=== PATIENT | male | born 1965 | race Caucasian/White ===

== ENCOUNTER 2020-06-01 17:20 | Emergency (ER) | payer OTHER, SELFPAY ==
[2020-06-01 18:12] VITALS: BP 99/70; PULSE 97; RESP 16; TEMP 36.7; O2SAT 97
--- NOTE | 2020-06-01 18:17 | ECG_ITS ---
Measurements Intervals [place] Rate: 89 P: 58 NE: 177 QRS: 22 QRSD: 77 T: 57 QT: 343 QTc: 419 Interpretive Statements SINUS RHYTHM BORDERLINE R WAVE PROGRESSION, ANTERIOR LEADS BASELINE ARTIFACT- I, II, AVR, AVL, V1 BORDERLINE ECG Electronically Signed On 06-01-2020 20:01:42 CDT by Anshu Morales D.O.
[2020-06-01 18:40] LABS: Basophils Absolute Auto 0.1 K/mm3 (0.0-0.1); Basophils Percent Auto 1.1 % (0.2-1.2); Eosinophils Absolute Auto 0.1 K/mm3 (0-0.3); Eosinophils Percent Auto 0.7 % (0-4.4); Hematocrit 42.7 % (42.0-52.0); Hemoglobin 14.8 g/dL (14.0-18.0); Immature Granulocyte Absolute 0.04 K/mm3 (0.00-0.031); Immature Granulocyte Percent A 0.3 % (0-0.5); Lymphocytes Absolute Auto 3.96 K/mm3 (0.9-3.2); Lymphocytes Percent Auto 32.2 % (18.3-44.2); Mean Corpuscular HGB Conc 34.7 g/dl (32-36); Mean Corpuscular Hemoglobin 32.9 pg (26-34); Mean Corpuscular Volume 94.9 fl (80-100); Mean Platelet Volume 10.2 fl (7.4-10.4); Monocytes Absolute Auto 0.6 K/mm3 (0.1-0.6); Monocytes Percent Auto 4.7 % (2.6-8.5); Neutrophils Absolute Auto 7.5 K/mm3 (1.3-6.7); Platelet Count Result 278 k/mm3 (150-375); Red Cell Distribution Width 12.7 % (11.5-14.5); White Blood Count 12.3 K/mm3 (4.5-10.0)
[2020-06-01 18:50] LABS: Potassium 3.9 mmol/L (3.4-5.0)
[2020-06-01 18:54] LABS: Alanine Aminotransferase 10 U/L (4-50); Albumin Level 4.7 g/dL (3.5-5.1); Alkaline Phosphatase 87 U/L (38-126); Anion Gap 13 mmol/L (8-16); Aspartate Amino Transferase 19 U/L (17-59); Bilirubin,Total 0.8 mg/dL (0.2-1.3); Blood Urea Nitrogen 10 mg/dL (9-20); Calcium 9.2 mg/dL (8.4-10.2); Carbon Dioxide 22 mmol/L (22-30); Chloride 101 mmol/L (98-107); Estimated CRCL calculation 80 ml/min; Estimated Glomerular Filt Rate > 60; Glucose 88 mg/dL (75-110); Sodium 136 mmol/L (137-145)
--- NOTE | 2020-06-01 20:22 | PC.NURSE ---
Went to get pt to take to a room and pt not in lobby. Pt did not inform staff he was leaving. Pt not in lobby or outside.
== END 2020-06-01 20:39 | disposition left against medical advice (07) ==
PROVIDERS: Emergency Provider Emergency Medicine
DX: R41.82 Altered mental status, unspecified (principal)
CPT/HCPCS: 36415; 80053; 85025; 93005; 99199

== ENCOUNTER 2020-06-12 12:26 | Emergency (ER) | payer OTHER, SELFPAY ==
[2020-06-12] VITALS (28 sets, daily range): BP systolic 129–166; BP diastolic 62–74; PULSE 62–82; RESP 12–20; TEMP 36.3; O2SAT 98–100
--- NOTE | ~2020-06-12 | CT_ITS ---
EXAMINATION: CT brain wo con EXAM DATE: 06/12/2020 13:03 INDICATION: Weakness and confusion. TECHNIQUE: Spiral CT of the head was performed without contrast. Axial, coronal and sagittal images were reviewed. The dose-length product (DLP) for this examination was 681.00 mGy-cm. The exposure w as tailored according to patient size, and iterative reconstruction (ASIR) was used as additional dos e reduction technique. There is no prior study for comparison. FINDINGS: Multiple scattered old left middle cerebral artery distribution infarctions. Old right basa l ganglia lacunar infarction. Mild microangiopathy and cerebral atrophy. There is no acute intraparen chymal hemorrhage. No evidence of intraparenchymal brain mass lesion. No evidence of acute infarcti on. There is no mass effect or midline shift. The ventricles are normal in size. There are no extr a-axial collections. There are no acute calvarial fractures. The orbits are unremarkable. Soft tiss ue is unremarkable. The visualized sinuses and mastoid air cells are well aerated. IMPRESSION: 1. No acute intracranial findings. 2. Multiple left MCA distribution infarctions. 3. Old right basal ganglia lacunar infarction. Reviewed, dictated and finalized at location B.
--- NOTE | ~2020-06-12 | XR_ITS ---
EXAMINATION: XR chest 1V EXAM DATE: 06/12/2020 13:11 INDICATION: Weakness and confusion. Coronary artery disease. Reflux. Hypertension. TECHNIQUE: Portable AP frontal chest x-ray was obtained. Comparison is made to prior examination from 12/24/2018. FINDINGS: The lungs are clear. There are no pleural effusions. The cardiomediastinal silhouette is within normal limits. There is no pneumothorax suspected. The bones and soft tissues are unremarkab le. IMPRESSION: No acute cardiopulmonary findings. Reviewed, dictated and finalized at location B.
--- NOTE | 2020-06-12 12:44 | ECG_ITS ---
Measurements Intervals [place] Rate: 76 P: 72 MS: 196 QRS: 27 QRSD: 81 T: 60 QT: 372 QTc: 419 Interpretive Statements SINUS RHYTHM INCOMPLETE RIGHT BUNDLE BRANCH BLOCK BASELINE ARTIFACT- I, II, III, AVR, AVL BORDERLINE ECG Electronically Signed On 06-12-2020 14:33:37 CDT by Anshu Morales D.O.
--- NOTE | 2020-06-12 12:50 | PC.NURSE ---
Called lab to make sure orders are received for blood previously sent down. Spoke with Milana
--- NOTE | 2020-06-12 12:52 | PC.NURSE ---
patient arrives to er accompanied by his significant other. girlfriend states that patient was seen [facility] last night and was told he has dementia and cva but was not admitted nor given medication or referral. girlfriend states they are here for a second opinion. patient rambles on about having clogged arteries that need to be unclogged and about generalized weakness and pain. girlfriend states that patient is not acting any differently that he usually does and really provides no clear chief complaint then becomes angry with continued questions. patient seems confused and also doesnt provided a clear chief complaint or any new symptoms
[2020-06-12 12:57] LABS: Basophils Absolute Auto 0.1 K/mm3 (0.0-0.1); Basophils Percent Auto 1.2 % (0.2-1.2); Eosinophils Absolute Auto 0.1 K/mm3 (0-0.3); Hematocrit 41.4 % (42.0-52.0); Hemoglobin 13.8 g/dL (14.0-18.0); Immature Granulocyte Absolute 0.02 K/mm3 (0.00-0.031); Immature Granulocyte Percent A 0.3 % (0-0.5); Lymphocytes Absolute Auto 2.28 K/mm3 (0.9-3.2); Lymphocytes Percent Auto 29.4 % (18.3-44.2); Mean Corpuscular HGB Conc 33.3 g/dl (32-36); Mean Corpuscular Hemoglobin 32.2 pg (26-34); Mean Corpuscular Volume 96.5 fl (80-100); Mean Platelet Volume 10.4 fl (7.4-10.4); Monocytes Absolute Auto 0.6 K/mm3 (0.1-0.6); Monocytes Percent Auto 7.4 % (2.6-8.5); Neutrophils Absolute Auto 4.7 K/mm3 (1.3-6.7); Neutrophils Percent Auto 60.7 % (45.5-73.1); Platelet Count Result 274 k/mm3 (150-375); Red Blood Count 4.29 M/mm3 (4.6-6.20); Red Cell Distribution Width 12.6 % (11.5-14.5); White Blood Count 7.8 K/mm3 (4.5-10.0)
[2020-06-12 13:04] LABS: Ethanol < 10 mg/dL (<10); Potassium 3.8 mmol/L (3.4-5.0)
[2020-06-12 13:05] LABS: Lactic Acid Reflex 1.6 mmol/L (0.7-2.1)
[2020-06-12 13:09] LABS: INR 0.9; Prothrombin Time 13.1 Seconds (11.1-14.7)
[2020-06-12 13:10] LABS: Partial Thromboplastin Time 28.6 SECONDS (22.3-36.8)
[2020-06-12 13:11] LABS: Alanine Aminotransferase 13 U/L (4-50); Albumin Level 4.4 g/dL (3.5-5.1); Alkaline Phosphatase 85 U/L (38-126); Anion Gap 9 mmol/L (8-16); Aspartate Amino Transferase 21 U/L (17-59); Bilirubin,Total 0.6 mg/dL (0.2-1.3); Blood Urea Nitrogen 8 mg/dL (9-20); CRP < 0.5 mg/dL (<1.0); Calcium 9.5 mg/dL (8.4-10.2); Carbon Dioxide 26 mmol/L (22-30); Chloride 104 mmol/L (98-107); Creatine Kinase 68 U/L (55-170); Estimated CRCL calculation 78 ml/min; Estimated Glomerular Filt Rate > 60; Glucose 98 mg/dL (75-110); Lipase 51 U/L (23-300); Magnesium 1.9 mg/dL (1.6-2.3); Sodium 139 mmol/L (137-145)
[2020-06-12 13:15] LABS: Troponin I < 0.012 ng/mL (0.000-0.034)
--- NOTE | 2020-06-12 14:13 | ED.GENADULT ---
HPI - General Adult General Chief complaint: Unspecified Stated complaint: CLOGGED ARTERIES Time Seen by Provider: 06/12/20 12:30 Source: patient and family Mode of arrival: wheelchair Limitations: other (poor historian) History of Present Illness HPI narrative: This is a 54 year old male who presents from home for evaluation of weakness. PAtient has been having weakness for several weeks. His states that he has been evaluated at [facility] 3 times in the last 3 weeks. He was diagnosed with a stroke and dementia 3 weeks ago . His girlfriend is at bedside and she states he was admitted to [facility] 3 weeks ago. He was also seen in ER yesterday. His girlfriend states she wants a second opinion. She states patient is not exhibiting any new changes or confusion today that she can tell. She states patient is at his baseline. Related Data Home Medications Medication Instructions Recorded Confirmed Wellbutrin XL 150 mg PO DAILY 12/24/18 12/25/18 atorvastatin 80 mg PO HS 12/24/18 12/24/18 clopidogrel 75 mg PO DAILY 12/24/18 12/24/18 hydroxyzine pamoate [Vistaril] 25 mg PO BID 12/24/18 12/24/18 lisinopril 20 mg PO DAILY 12/24/18 12/24/18 omeprazole 20 mg PO DAILY 12/24/18 12/24/18 Allergies Allergy/AdvReac Type Severity Reaction Status Date / Time No Known Allergies Allergy Verified 06/12/20 12:38 Review of Systems Review of Systems: Narrative: CONSTITUTIONAL: Denies fever, chills, or sweats. EYES: Denies visual changes, redness, or discharge. ENT: Denies rhinorrhea, congestion, sore throat, or otalgia. CARDIOVASCULAR: Denies chest pain, palpitations, or edema. RESPIRATORY: Denies cough or dyspnea. GASTROINTESTINAL: Denies abdominal pain, nausea, vomiting, or diarrhea. GENITOURINARY: Denies dysuria or hematuria. SKIN: Denies rash or itching. MUSCULOSKELETAL: Denies back pain, joint pain, or myalgia. NEUROLOGIC: Denies , numbness, PSYCHIATRIC: Denies anxiety or depression. All systems reviewed & are unremarkable except as noted in HPI and below PMFSH Past Medical History Medical History (Updated 06/12/20 @ 15:42 by Sudha Hook MD) Anxiety Carotid artery disease CVA (cerebral vascular accident) Patient reports 07/29 Depression GERD (gastroesophageal reflux disease) Hyperlipidemia LDL goal <70 Hypertension Family History Family History Mother Heart disease Social History Social History (Updated 12/24/18 @ 09:53 by GHULAM Zaman) Smoking packs per day: 1 Smoking cigarettes per day: 20.0 Years smoked: 40 Smoking pack-years: 40.00 Smoking status: Current some day smoker Tobacco type: cigarettes Alcohol intake: former Substance use: current Substance use type: marijuana Gender identity (if verbalized by the patient): Male Spiritual care concerns: No Agree to blood products: Yes Exam Narrative: Exam Narrative: GENERAL: Well-appearing, well-nourished, and in no acute distress. HEAD: Normocephalic, atraumatic EYES: PERRLA and EOMI, conjunctiva clear without discharge EARS: TM's clear bilaterally without erythema or dullness THROAT:Mucous membranes moist, Oropharynx normal without erythema, exudate, peritonsillar swelling or fluctuance NECK: Supple, without lymphadenopathy or mass RESPIRATORY: No respiratory distress, Airway patent, Respirations non-labored, Clear to auscultation without rales, rhonchi or wheeze HEART: Regular rate and rhythm. No murmur heard. Normal peripheral pulses. ABDOMEN: Soft, nontender, nondistended, normal active bowel sounds. No masses. No rebound or guarding, No organomegaly. EXTREMITIES: No edema, SKIN: Warm, dry, normal color without rash NEURO: Alert and oriented x3. CN 2-12 grossly intact. 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 moves all extremities, no drift PSYCH: Normal mood and affect. Course Reevaluation(s) Reevaluation #1: PAtient has n
[2020-06-12 14:38] LABS: Add Urine Microscopic? NO; Appearance Urine Clear (Clear); Bilirubin Urine Negative (Negative); Blood Urine Negative (Negative); Color Urine Yellow (Yellow); Glucose Urine UA Negative (Negative); Ketones Urine Negative (Negative); Leukocyte Esterase Ur Negative LEU/UL (Negative); Nitrate Urine Negative (Negative); Protein Urine Negative (Negative); Urobilinogen Urine Negative mg/dL (<2.0)
[2020-06-12 14:41] LABS: Amphetamine Screen Urine Negative (Negative); Barbiturate Screen Urine Negative (Negative); Benzodiazepines Screen Urine Negative (Negative); Cannabinoid Screen Urine Positive (Negative); Cocaine Screen Urine Negative (Negative); Methadone Screen Urine Negative (Negative); Opiate Screen Urine Negative (Negative); Phencyclidine Screen Urine Negative (Negative)
--- NOTE | 2020-06-12 16:16 | PC.NURSE ---
PT AMBULATED IN [place] WITH STEADY GAIT. DENIES DIZZINESS OR SOB. TOLERATED WELL.
== END 2020-06-12 17:01 | disposition home or self-care (01) ==
PROVIDERS: Emergency Provider General Practice
DX: R53.1 Weakness (principal); F03.90 Unspecified dementia, unspecified severity, without behavioral disturbance, psychotic disturbance, mood disturbance, and anxiety; I25.10 Atherosclerotic heart disease of native coronary artery without angina pectoris; K21.9 Gastro-esophageal reflux disease without esophagitis; E78.5 Hyperlipidemia, unspecified; I10 Essential (primary) hypertension; F32.9 Major depressive disorder, single episode, unspecified; F41.9 Anxiety disorder, unspecified; Z86.73 Personal history of transient ischemic attack (TIA), and cerebral infarction without residual deficits; F17.210 Nicotine dependence, cigarettes, uncomplicated; I45.10 Unspecified right bundle-branch block
CPT/HCPCS: 36415; 70450; 71045; 80053; 80307; 81003; 82550; 83605; 83690; 83735; 84484; 85025; 85610; 85730; 86140; 87040; 93005; 99284

== ENCOUNTER 2023-01-16 07:56 | Outpatient (CLI) | payer OTHER, SELFPAY ==
--- NOTE | ~2023-01-16 | XR_ITS ---
EXAMINATION: XR barium swallow modified DATE: 01/16/2023 09:14 INDICATION: Dysphagia TECHNIQUE: Modified barium esophagram was performed by myself who administered fluoroscopy, in conju nction with speech pathologist who administered barium in varying consistencies as per speech patholo gist documentation. This was recorded on tape. A single fluoroscopic spot image was recorded. Fluoros copy exposure time was 3.08 minutes. The DAP for this procedure was 2.593 Gycm2. FINDINGS: Oral stage: Adequate function. Pharyngeal phase: Reduced laryngeal elevation, reduced tongue base retraction, reduced pharyngeal squ eeze, vallecular and therefore sinus residue, pharyngeal wall residue. Laryngeal penetration: Present. Aspiration: None. Laryngeal sensitivity: Absent. IMPRESSION: Abnormal modified barium swallow. Please refer to speech pathologist findings and specifi c feeding recommendations. Reviewed, dictated and finalized at location A. O ENGINEER IMPRESSION: Abnormal modified barium swallow. Please refer to speech pathologis t findings and specific feeding recommendations.
--- NOTE | 2023-01-16 09:42 | REHSTMBS ---
Assessment and note entered by Chel Groves AUTOMOTIVE [employer]CONDITIONING MECHANIC Modified Barium Swallow Evaluation Feeding Type Recommended Oral Treatment Recommendations Effortful Swallow,Laryngeal Elevation Exerc,Tongue Base Exercise ST Clinical Summary MODIFIED BARIUM SWALLOW STUDY This patient was seen for a Modified Barium Swallow study. Patient reported that he is a resident of [facility] and his girlfriend who accompanied him wondered if he had had a stroke recently. Patient reported that he has been having difficulty swallowing for two weeks. Patient was really unable to describe how he had difficulty swallowing but when asked if liquids made him cough, he stated yes, and when asked if food hangs up in his throat, he stated, yes. Today the patient was viewed in the lateral position to the level of C5/C6. Patient was presented with a small sip of thin liquid per spoon, and then uncontrolled amount of thin liquid per cup and per straw, pudding mixed with semi- solid contrast medium per spoon, and then both crackers and fruit pieces coated with the pudding mixture. He exhibited swallows that were elicited within normal limits however on each presentation he had mild to moderate residual in the valleculae after each swallow, requiring multiple swallows to clear. There was trace penetration on several sips of thin liquid per both cup and per straw. He elicited throat clearing consistently which cleared most of the penetrated material; no true aspiration was noted during this evaluation. Results indicate this patient has mild dysphagia characterized as mild risk for aspiration on thin liquids secondary to reduced base of tongue retraction and reduced laryngeal elevation. Patient would benefit from a Mechanical Soft diet with chopped-up meats and other [id number] foods, [place]/Mildly Thick Liquids, and should avoid mixed consistencies such as chicken noodle soup, unless thin liquids are slightly thickened. Small bites and sips, alternate liquids and solids, and using multiple swallows per bite/sip would be recommended. Patient should continue in speech therapy for exercises to improve base of tongue
== END 2023-01-16 07:57 | disposition home or self-care (01) ==
PROVIDERS: Visit Provider Internal Medicine
DX: R13.12 Dysphagia, oropharyngeal phase (principal)
CPT/HCPCS: 92611

== ENCOUNTER 2023-07-03 09:11 | Outpatient (CLI) | payer OTHER, SELFPAY ==
--- NOTE | ~2023-07-03 | XR_ITS ---
EXAMINATION: XR barium swallow modified DATE: 07/03/2023 09:53 INDICATION: Dysphagia. TECHNIQUE: The patient was given barium-containing material of multiple consistencies to swallow by t cecelia speech pathologist while I performed fluoroscopy. Fluoroscopy exposure time was 2.4 minutes. The n umber of fluoroscopy images saved to the PACS was 1. Dose-area product was 1.552 Gy-cm^2. FINDINGS: There is reduced laryngeal elevation, reduced laryngeal adduction, reduced tongue base retraction, re duced pharyngeal squeeze, vallecular residue, pyriform sinus residue, pharyngeal wall residue, and la ryngeal penetration. There is aspiration of thin liquids. IMPRESSION: 1. Aspiration of thin liquids. 2. Please refer to the speech therapy report for recommendations. Reviewed, dictated and finalized at location A.
--- NOTE | 2023-07-03 12:38 | REHSTMBS ---
Assessment and note entered by Chel Groves, JEWEL GAUGER Modified Barium Swallow Evaluation Feeding Type Recommended Oral Food Consistency Soft and Bite Size, Level Liquid Consistency Mildly Thick (2) Treatment Recommendations Effortful Swallow,Laryngeal Elevation Exerc,Tongue Base Exercise,Vocal Fold Adduction Exer ST Clinical Summary MODIFIED BARIUM SWALLOW STUDY This patient was seen for a Modified Barium Swallow study at the request of his physician. Patient is a resident of [facility]. Suzi, the director of therapy at that facility, accompanied patient and reported they have seen a decline in his function recently. He is on a Mechanical Soft Diet and [place] (Mildly) Thick Liquids and staff can tell that patient is retaining food/liquid in the throat due to throat sounds when consuming meals, and they express a concern for aspiration. He was first evaluated on January 16, 2023 and found to have similar results with similar recommendations Patient was viewed in the lateral position to the level of C5/C6. Patient was presented first with 1/2 teaspoon of pudding mixed with semi-solid contrast medium and a significant portion remained in the valleculae after the completion of the swallow. Patient did not feel this residue and no independent secondary swallows were triggered. When therapist requested patient to swallow, he did elicit a second swallow which did not clear much of the residual. Given small sips of thin liquid contrast medium, he exhibited immediate penetration with aspiration and no cough reflex. Therapist requested the patient to cough, which cleared only a small portion of the penetrated material. He was then given nectar thick liquid per spoon and then per cup and exhibited no additional penetration, along with carly cracker pieces. Testing was terminated. The following impairments are noted: Oral Stage: None. Pharyngeal Stage: Reduced laryngeal elevation; poor epiglottal inversion contributing to significant pharyngeal residue following swallows.
== END 2023-07-03 09:12 | disposition home or self-care (01) ==
PROVIDERS: PCP Internal Medicine; Visit Provider Internal Medicine
DX: R13.10 Dysphagia, unspecified (principal)
CPT/HCPCS: 92611